=== PATIENT | male | born 1955 ===

== ENCOUNTER 2018-03-23 15:03 | Emergency (ER) | payer OTHER ==
[~2018-03-23] VITALS: Ht 170.2 cm; Wt 77.1 kg
[2018-03-23] MEDS ORDERED: NYST237S MT (15:26)
== END 2018-03-23 15:46 | disposition home or self-care (01) ==
LOC: ER 15:03
DX: J04.0 Acute laryngitis (principal)
CPT/HCPCS: 99283; J1100

== ENCOUNTER 2018-04-27 15:10 | Emergency (ER) | payer OTHER ==
[~2018-04-27] VITALS: Ht 172.7 cm; Wt 74.8 kg
[~2018-04-27 15:10] MED LIST: NYST237S MT
== END 2018-04-27 15:46 | disposition home or self-care (01) ==
LOC: ER 15:10
DX: J04.0 Acute laryngitis (principal); Z87.891 Personal history of nicotine dependence
CPT/HCPCS: 99281